=== PATIENT | female | born 1980 | race Caucasian/White ===

== ENCOUNTER 2018-08-09 06:16 | Emergency (ER) | payer MEDICAID ==
[~2018-08-09] VITALS: Ht 160 cm; Wt 105.0 kg
[~2018-08-09 06:16] MED LIST: PRENATAL PO
[2018-08-09 06:53] VITALS: BP 124/71
[2018-08-09] MEDS ORDERED: DEXAMETHASONE SOD PHOS 4 MG/ML 5 ML VIAL IM ONE (07:00)
[2018-08-09] MEDS ORDERED: IBUPROFEN 600 MG TABLET PO ONE (07:00)
[2018-08-09] MEDS ORDERED: PENICILLIN G BENZATHINE LA 1,200,000 UNITS/2 ML SYRINGE IM ONE (07:45)
== END 2018-08-09 08:13 | disposition home or self-care (01) ==
LOC: EMS 06:17
DX: J02.0 Streptococcal pharyngitis (principal)
CPT/HCPCS: 87430; 96372; 99283; J0561; J1100

== ENCOUNTER 2019-03-22 09:15 | Emergency (ER) | payer MEDICAID ==
[~2019-03-22] VITALS: Ht 154.9 cm; Wt 81.8 kg
[2019-03-22] MEDS ORDERED: KETOROLAC TROMETHAMINE 30 MG/ML VIAL IM ONE (11:45)
[2019-03-22] MEDS ORDERED: AMOXICILLIN TRIHYDRATE 250 MG CAPSULE PO ONE (13:30)
[2019-03-22 14:11] VITALS: BP 128/82
== END 2019-03-22 14:13 | disposition home or self-care (01) ==
LOC: EMS 09:22
DX: J02.0 Streptococcal pharyngitis (principal)
CPT/HCPCS: 87430; 96372; 99283; J1885

== ENCOUNTER 2019-05-21 21:50 | Emergency (ER) | payer MEDICAID ==
[~2019-05-21] VITALS: Ht 154.9 cm; Wt 93.2 kg
[2019-05-21] MEDS ORDERED: GLYCERIN 2 GM RECTAL SUPPOSITORY [ADULT] PR ONE (23:15)
[2019-05-21] MEDS ORDERED: IBUPROFEN 400 MG TABLET PO ONE (23:15)
[2019-05-21] MEDS ORDERED: ACETAMINOPHEN 325 MG TABLET PO ONE (23:30)
[2019-05-21 23:38] VITALS: BP 132/74
== END 2019-05-22 00:03 | disposition home or self-care (01) ==
LOC: EMS 21:51
DX: K64.8 Other hemorrhoids (principal); E66.9 Obesity, unspecified; Z98.890 Other specified postprocedural states; Z68.38 Body mass index [BMI] 38.0-38.9, adult

== ENCOUNTER 2019-05-23 11:04 | Emergency (ER) | payer MEDICAID ==
[~2019-05-23] VITALS: Ht 152.4 cm; Wt 100.0 kg
[2019-05-23] MEDS ORDERED: BENZONATATE 100 MG CAPSULE PO ONE (12:30)
[2019-05-23] MEDS ORDERED: LIDOCAINE 2% 5 ML JELLY TP ONE (12:30)
[2019-05-23] MEDS ORDERED: HYDROCORTISONE 2.5% 30 GM CREAM TP ONE (12:30)
[2019-05-23] MEDS ORDERED: KETOROLAC TROMETHAMINE 30 MG/ML VIAL IM ONE (12:30)
[2019-05-23 13:46] VITALS: BP 129/80
== END 2019-05-23 13:48 | disposition home or self-care (01) ==
LOC: EMS 11:05
DX: J40 Bronchitis, not specified as acute or chronic (principal); K64.9 Unspecified hemorrhoids; E66.9 Obesity, unspecified; Z68.41 Body mass index [BMI] 40.0-44.9, adult
CPT/HCPCS: 71046; 81025; 96372; 99284; J1885

== ENCOUNTER 2021-12-04 00:31 | Emergency (ER) | payer MEDICAID ==
[~2021-12-04] VITALS: Ht 152.4 cm; Wt 90.9 kg
[2021-12-04 01:03] LABS: BASOPHILS % (AUTO) 0.6 % (0.0-2.0); EOSINOPHILS % (AUTO) 3.5 % (1.0-6.0); LYMPHOCYTES # (AUTO) 2.4 K/uL (1.0-4.8); LYMPHOCYTES % (AUTO) 28.4 % (22.0-44.0); MEAN CORPUSCULAR HEMOGLOBIN 20.3 pg (26.0-34.0); MEAN CORPUSCULAR VOLUME 65 fL (80-100); MONOCYTES # (AUTO) 0.5 K/uL (0.1-1.0); MONOCYTES % (AUTO) 6.1 % (2.0-9.0); NEUTROPHILS # (AUTO) 5.2 K/uL (1.8-7.7); NEUTROPHILS % (AUTO) 61.4 % (40.0-70.0); PLATELET COUNT (AUTO) 465 K/uL (150-450); RED BLOOD CELL COUNT(AUTO) 4.43 MIL/uL (4.00-5.20); RED CELL DISTRIBUTION WIDTH 17.3 % (11.5-14.5)
[2021-12-04 01:24] LABS: PLATELET MORPHOLOGY COMMENT LARGE PLTS PRESENT
[2021-12-04 01:27] LABS: ANION GAP 9 mmol/L (8-16); CALCIUM, TOTAL 8.2 mg/dL (8.8-10.5); CARBON DIOXIDE 25 mmol/L (22-29); CHLORIDE 103 mmol/L (98-107); CREATININE 0.68 mg/dL (0.60-1.30); GLOMERULAR FILTR. RATE CALC > 60 mL/min (>60); GLUCOSE,RANDOM 136 mg/dL (70-110); POTASSIUM 3.5 mmol/L (3.5-5.1); SODIUM SERUM 137 mmol/L (136-145); UREA NITROGEN, BLOOD 11 mg/dL (7-18)
[2021-12-04 01:33] LABS: ALANINE AMINOTRANSFERASE 24 U/L (12-78); ALBUMIN 3.5 g/dL (3.4-5.0); ALKALINE PHOSPHATASE 93 U/L (46-116); ASPARTATE AMINOTRANSFERASE 17 U/L (15-37); BILIRUBIN,TOTAL 0.2 mg/dL (0.1-1.0); LIPASE 77 U/L (73-393); TOTAL PROTEIN, SERUM 7.3 g/dL (6.4-8.2)
[2021-12-04] MEDS ORDERED: IOHEXOL 350 MG/ML 150 ML VIAL ONE (01:39)
[2021-12-04] MEDS ORDERED: SODIUM CHLORIDE 0.9% 100 ML ONE (01:39)
[2021-12-04 02:44] LABS: HCG,QUANTITATIVE < 1 mIU/mL (0-6)
[2021-12-04 05:23] VITALS: BP 127/82
== END 2021-12-04 07:28 | disposition home or self-care (01) ==
LOC: EMS 00:34
DX: D64.9 Anemia, unspecified (principal); R10.11 Right upper quadrant pain
CPT/HCPCS: 74177; 80053; 83690; 84702; 85025; 93005; 99285; J7050; Q9967

== ENCOUNTER 2022-12-08 16:57 | Emergency (ER) | payer MEDICAID ==
[~2022-12-08] VITALS: Ht 154.9 cm; Wt 103.6 kg
[2022-12-08 17:09] VITALS: BP 154/95; PULSE 109; RESP 20; TEMP 98.9
[2022-12-08 19:09] LABS: BASOPHILS % (AUTO) 0.9 % (0.0-2.0); EOSINOPHILS % (AUTO) 4.3 % (1.0-6.0); HEMATOCRIT 29.5 % (36-46); HEMOGLOBIN 8.7 g/dL (12.0-16.0); LYMPHOCYTES # (AUTO) 2.1 K/uL (1.0-4.8); LYMPHOCYTES % (AUTO) 29.6 % (22.0-44.0); MEAN CORPUSCULAR HGB CONC 29.6 G/dL (31.0-37.0); MEAN CORPUSCULAR VOLUME 64 fL (80-100); MONOCYTES # (AUTO) 0.5 K/uL (0.1-1.0); MONOCYTES % (AUTO) 7.6 % (2.0-9.0); NEUTROPHILS # (AUTO) 4.1 K/uL (1.8-7.7); NEUTROPHILS % (AUTO) 57.6 % (40.0-70.0); PLATELET COUNT (AUTO) 482 K/uL (150-450); RED BLOOD CELL COUNT(AUTO) 4.58 MIL/uL (4.00-5.20); RED CELL DISTRIBUTION WIDTH 18.1 % (11.5-14.5)
[2022-12-08 19:19] LABS: ANION GAP 9 mmol/L (8-16); CALCIUM, TOTAL 8.8 mg/dL (8.8-10.5); CARBON DIOXIDE 28 mmol/L (22-29); CHLORIDE 102 mmol/L (98-107); GLOMERULAR FILTR. RATE CALC > 60 mL/min (>60); GLUCOSE,RANDOM 122 mg/dL (70-110); POTASSIUM 3.6 mmol/L (3.5-5.1); SODIUM SERUM 139 mmol/L (136-145)
[2022-12-08 19:31] LABS: ALANINE AMINOTRANSFERASE 26 U/L (12-78); ALBUMIN 3.6 g/dL (3.4-5.0); ALKALINE PHOSPHATASE 89 U/L (46-116); ASPARTATE AMINOTRANSFERASE 21 U/L (15-37); BILIRUBIN,TOTAL 0.3 mg/dL (0.1-1.0); HCG,QUANTITATIVE < 1 mIU/mL (0-6); LIPASE 66 U/L (73-393); TOTAL PROTEIN, SERUM 7.8 g/dL (6.4-8.2)
== END 2022-12-08 22:25 | disposition home or self-care (01) ==
LOC: EMS 16:58
DX: Z53.21 Procedure and treatment not carried out due to patient leaving prior to being seen by health care provider (principal)
CPT/HCPCS: 80053; 83690; 84702; 85025; 99281

== ENCOUNTER 2025-04-14 14:24 | Emergency (ER) | payer MEDICAID, OTHER ==
[~2025-04-14] VITALS: Ht 157.5 cm; Wt 95.0 kg
[2025-04-14 14:38] VITALS: TEMP 98.8
[2025-04-14 16:27] LABS: PLATELET COUNT (AUTO) 339 K/uL (150-450); RED BLOOD CELL COUNT(AUTO) 4.18 MIL/uL (4.00-5.20); RED CELL DISTRIBUTION WIDTH 16.1 % (11.5-14.5); WHITE BLOOD COUNT (AUTO) 6.4 K/uL (4.5-11.0)
[2025-04-14 16:37] LABS: CALCIUM, TOTAL 8.4 mg/dL (8.8-10.5); CREATININE 0.46 mg/dL (0.60-1.30); GLOMERULAR FILTR. RATE CALC > 60 mL/min (>60); GLUCOSE,RANDOM 93 mg/dL (70-110); SODIUM SERUM 138 mmol/L (136-145); UREA NITROGEN, BLOOD 12 mg/dL (7-18)
[2025-04-14 17:26] LABS: RBC MORPHOLOGY COMMENT ABNORMAL RBC MORPH
[2025-04-14 18:39] VITALS: BP 112/78; PULSE 81; RESP 18; O2SAT 97
[2025-04-14] MEDS ORDERED: MEDR5TAB5 PO (20:47)
[2025-04-14] MEDS ORDERED: IBUP-1492 PO (21:42)
== END 2025-04-14 22:50 | disposition home or self-care (01) ==
LOC: EMS 14:24
DX: N93.9 Abnormal uterine and vaginal bleeding, unspecified (principal); Z98.890 Other specified postprocedural states
CPT/HCPCS: 76811; 80048; 84702; 85025; 99284